=== PATIENT | female | born 1945 | race Caucasian/White ===

== ENCOUNTER → 2018-09-16 10:17 | Outpatient (CLI) | payer MEDICARE, SELFPAY ==
--- NOTE | 2018-09-16 | DI.RAD.S_ITS ---
PROCEDURE: XR CHEST 2V INDICATIONS: PNEUMONIA TECHNIQUE: 2 views of the chest were acquired. COMPARISON: None. FINDINGS: Surgical changes and devices: None. Lungs and pleura: Lungs are clear. No pleural effusions or pneumothorax. Mediastinum: Mediastinal contours are normal. Heart size is normal. Bones and chest wall: No suspicious bony abnormalities. Soft tissues appear unremarkable. IMPRESSION: No acute cardiopulmonary pathology. Dictated by: Ezequiel Pierre M.D. on 09/16/2018 at 11:59 Approved by: Ezequiel Pierre M.D. on 09/16/2018 at 12:01
== END ==
PROVIDERS: PCP Family Medicine; Visit Provider Family Medicine
DX: J18.9 Pneumonia, unspecified organism (principal); R05 Cough
CPT/HCPCS: 71046

== ENCOUNTER 2020-02-02 11:58 | Emergency (ER) | payer MEDICARE, SELFPAY ==
[2020-02-02 12:11] VITALS: BP 143/88; PULSE 85; RESP 16; TEMP 36.8; O2SAT 98; BMI 24.7
--- NOTE | 2020-02-02 12:19 | DI.RAD.S_ITS ---
PROCEDURE: XR ANKLE RT MIN 3V INDICATIONS: fall TECHNIQUE: 3 views of the ankle were acquired. COMPARISON: None. FINDINGS: Bones: Comminuted, mildly displaced distal fibular fracture extending to the articular surface. Minimally displaced posterior malleolar fracture. No other fractures or dislocations seen. Ankle mortise is normally aligned. No suspicious bony lesions. Soft tissues: No tibiotalar joint effusion. Achilles tendon appears normal. IMPRESSION: Bimalleolar fractures involving the distal fibula and posterior malleolus as described above. Dictated by: Dawson Martinez M.D. on 02/02/2020 at 12:43 Approved by: Dawson Martinez M.D. on 02/02/2020 at 12:44
--- NOTE | 2020-02-02 12:53 | ED_ITS ---
HPI - Extremity Injury (Lower) <COLE Santiago - Last Filed: 02/02/20 17:32> General Chief Complaint: Extremity Injury, Lower Stated Complaint: rolled right ankle Time Seen by Provider: 02/02/20 12:15 Source: patient Mode of arrival: Wheelchair History of Present Illness HPI Narrative: 74yo female presents to the for right ankle pain and swelling post fall. She states she was walking outside when she stepped on a rock and felt her ankle snap. She called to the house and called for her . She denies any previous injury to the ankle. Denies any symptoms prior to fall, states it is clearly mechanical fall as it was dark outside when she was walking to her car. She was unable to bear weight post injury. Denies any dizziness, hand pain, other injuries, chest pain, shortness of breath, abdominal pain, nausea, vomiting, diarrhea, or any other concerns. Is able to wiggle her toes but reports pain with toe movement in ankle movement. Related Data Previous Rx's Medication Instructions Recorded hydrocodone-acetaminophen [[place]] 1 tab PO Q4-6H PRN #14 tab 02/02/20 Review of Systems <COLE Santiago - Last Filed: 02/02/20 17:32> Review of Systems Narrative: REVIEW OF SYSTEMS: GENERAL: Denies fever. HENT: No head trauma. CARDIOVASCULAR: No chest pain or syncope. RESPIRATORY: No shortness of breath or cough. GASTROINTESTINAL: No nausea, vomiting, diarrhea, or constipation. MUSCULOSKELETAL: Complains of R anklr pain, see HPI. INTEGUMENTARY: No rash. NEURO: No numbness, tingling. Patient History <COLE Santiago - Last Filed: 02/02/20 17:32> Medical History No significant medical problems Social History Smoking Status: Never smoker Smoking Status: Never smoker Substance Use Type: does not use Exam <COLE Santiago - Last Filed: 02/02/20 17:32> Initial Vital Signs Initial Vital Signs: Vital Signs Temperature 98.2 F 02/02/20 12:11 Pulse Rate 85 02/02/20 12:11 Respiratory Rate 16 02/02/20 12:11 Blood Pressure 143/88 H 02/02/20 12:11 Pulse Oximetry 98 02/02/20 12:11 PHYSICAL EXAMINATION: GENERAL: Well groomed, alert, and cooperative. HENT: Normocephalic, atraumatic. EYES: Symmetrical, sclera white, no periorbital swelling. CARDIOVASCULAR: Regular rate. RESPIRATORY: Normal respiratory rate, trachea midline, airway patent. No stridor, nasal flaring or accessory muscle use. MUSCULOSKELETAL: Obvious deformity to ankle with right foot inversion, tenderness to palpation, swelling, and surrounding ecchymosis. No tenderness to palpation of knee or hip. EXTREMITIES: CMS intact. Pedal pulses 2+ and equal bilaterally, sensation intact distal and proximal to fracture. SKIN: Warm, dry, soft, appropriate color for ethnicity. No lesions, rashes, or wounds. NEURO: Alert and Oriented X 3. No sensory deficits. PSYCH: Appropriate affect and mood. <Alvaro Mathew DO - Last Filed: 02/02/20 17:40> Initial Vital Signs Initial Vital Signs: Vital Signs Temperature 98.2 F 02/02/20 12:11 Pulse Rate 85 02/02/20 12:11 Respiratory Rate 16 02/02/20 12:11 Blood Pressure 143/88 H 02/02/20 12:11 Pulse Oximetry 98 02/02/20 12:11 Procedures <COLE Santiago - Last Filed: 02/02/20 17:32> Orthopedic Splinting/Casting Injury #1: Side: right Lower Extremity Injury Location: lower leg Lower Extremity Immobilizer: posterior splint and stirrup splint Other Orthopedic Equipment: crutches Post splinting neuro exam: intact Post splinting vascular exam: intact Placed by: Nursing Course <COLE Santiago - Last Filed: 02/02/20 17:32> Course Course Narrative: Patient given pain medication prior to splint placement. Orders Ordered: ED Orders 02/02/20 12:19 XR ankle RT min 3V Stat Discontinued Medications Hydrocodone Bitart/Acetaminophen (Hydrocodone/Acet 5/325 Tablet) 1 tab PO NOW ONE Stop: 02/02/20 13:23 Last Admin: 02/02/20 13:26 Dose: 1 tab Documented by: GAURANG Recinos Consultation #1: Patient staffed with Dr. Lanker Vital Signs Vital signs: Vital Signs - 8 hr 02/02/20 12:11 Temperature 98.2 F Pulse Rate 85 Respiratory Rate 16 Blood Pressure 143/88 H Pulse Oximetry 98 <Alvaro Mathew DO - Last Filed: 02/02/20 17:40> Orders Ordered: ED Orders 02/02/20 12:19 XR ankle RT min 3V Stat Discontinued Medications Hydrocodone Bitart/Acetaminophen (Hydrocodone/Acet 5/325 Tablet) 1 tab PO NOW ONE Stop: 02/02/20 13:23 Last Admin: 02/02/20 13:26 Dose: 1 tab Documented by: GAURANG Vital Signs Vital signs: Vital Signs - 8 hr 02/02/20 12:11 Temperature 98.2 F Pulse Rate 85 Respiratory Rate 16 Blood Pressure 143/88 H Pulse Oximetry 98 MDM - Extremity Injury (Lower) <COLE Santiago - Last Filed: 02/02/20 17:32> Medical Records Attestation: I reviewed the patient's medical records. Lab Data Attestation: I reviewed the patient's lab results. Imaging Data Extremity x-ray #1: Radiologist's Impression: [address] [id number] ReportSigned Patient: Laura CruzMR#: [id number]: [id number]:[id number]/Sex: 74 / FDate of Service: 02/02/20Loc: EDAccession Number: [id number] Procedure: XR ankle RT min 3V Ordering Provider: Kylah Geiger PROCEDURE: XR ANKLE RT MIN 3V INDICATIONS: fall TECHNIQUE: 3 views of the ankle were acquired. COMPARISON: None. FINDINGS: Bones: Comminuted, mildly displaced distal fibular fracture extending to the articular surface. Minimally displaced posterior malleolar fracture. No other fractures or dislocations seen. Ankle mortise is normally aligned. No suspicious bony lesions. Soft tissues: No tibiotalar joint effusion. Achilles tendon appears normal. IMPRESSION: Bimalleolar fractures involving the distal fibula and posterior malleolus as described above. Dictated by: Dawson Martinez M.D. on 02/02/2020 at 12:43 Approved by: Dawson Martinez M.D. on 02/02/2020 at 12:44 MDM Narrative Medical decision making narrative: History and examination reveal a significant bimalleolar right ankle fracture. Less concern for other injuries due to benign examination and lack of other concerns or pain. Patient denies hitting her head. Patient describes fall as clearly mechanical without concerning symptoms prior to fall or after fall other than ankle pain. Splint was placed, CMS intact pre and post splint placement. I straightened the ankle while nursing placed a splint to improve alignment. Patient was counseled extensively about the importance of following up with Ortho as soon as possible as most likely surgery may be needed. Pain medication was prescribed. She was encouraged to not bear any weight on her leg at any point. Patient agreed to plan of care verbalized understanding. Discharge Plan Departure Patient Disposition: Home Clinical Impression: Bimalleolar ankle fracture Qualifiers: Encounter type: initial encounter Fracture type: closed Laterality: right Qualified Code(s): S82.841A - Displaced bimalleolar fracture of right lower leg, initial encounter for closed fracture Instructions: DI for Ankle Fracture Activity Restrictions/Additional Instructions: Thank you for entrusting me with your care today. As discussed, you have multiple fractures in your right ankle. We have placed a splint on your ankle, please leave this in place until you are evaluated by an orthopedic. If the splint causes a lot of pain, you may loosen the Angelito bandage. Do not place any weight on your right foot, use crutches to move around, elevate your foot as much as possible. You have been prescribed a narcotic medication, this medication can make you drowsy. Do not drive while using this medication or perform activities that require mental alertness. These medications can also make you constipated, please use [id number] docusate sodium as needed for constipation. Please call the orthopedic listed below today or tomorrow to schedule a follow- up appointment. Tell them you were seen in the emergency department and diagnosed with a bimalleolar ankle fracture. Return emergency department for any new or worsening symptoms. Prescriptions: New hydrocodone-acetaminophen [[place]] 5-325 mg tablet 1 tab PO Q4-6H PRN (Reason: pain) Qty: 14 RF: 0 Referrals: Darell Feldman MD [Physician] - (Bimalleolar fracture) Sharon Mcrae [Primary Care Provider] - <Alvaro Mathew DO - Last Filed: 02/02/20 17:40> Cosign ED Attending Cosignature Attestation: Dr Mathew Co-Sign Statement: I was available for consultation during this patient's emergency department visit. This chart is signed by myself for administrative purposes only. I did not have direct contact with this patient during this visit. They were seen independently by the APC.
[2020-02-02] MEDS: HYDROCODONE/ACET 5/325 TABLET 1 TAB PO (13:26)
== END 2020-02-02 14:48 | disposition home or self-care (01) ==
PROVIDERS: Emergency Provider Nurse Practitioner; PCP Family Medicine
DX: S82.841A Displaced bimalleolar fracture of right lower leg, initial encounter for closed fracture (principal); W19.XXXA Unspecified fall, initial encounter
CPT/HCPCS: 29515; 73610; 99283

== ENCOUNTER 2023-08-03 13:00 | Inpatient (IN) | payer MEDICARE, OTHER, SELFPAY ==
[2023-08-03] VITALS (20 sets, daily range): BP systolic 101–178; BP diastolic 58–91; PULSE 81–135; RESP 20–52; TEMP 36.8–38.4; O2SAT 92–96; BMI 26.2; BMI 25.7
--- NOTE | 2023-08-03 13:21 | DI.RAD.S_ITS ---
PROCEDURE: XR CHEST 1V INDICATIONS: suspected sepsis TECHNIQUE: One view of the chest was acquired. COMPARISON: [facility], CR, XR CHEST 2V, 09/16/2018, 10:53. FINDINGS: Surgical changes and devices: None. Lungs and pleura: Lungs are clear. No pleural effusions or pneumothorax. Mediastinum: Mediastinal contours appear normal. Heart size is normal. Bones and chest wall: No suspicious bony lesions. Overlying soft tissues appear unremarkable. IMPRESSION: No acute cardiopulmonary abnormality is seen. Dictated by: Devin Perry M.D. on 08/03/2023 at 13:46 Approved by: Devin Perry M.D. on 08/03/2023 at 13:47
[2023-08-03 13:30] LABS: Add Manual Diff / Slide Review NO; Basophils Absolute Auto 0 /uL (0-100); Basophils Percent Auto 0.5 % (0-2); Eosinophils Absolute Auto 0 /uL (0-450); Hematocrit 37.4 % (36-46); Hemoglobin 12.8 g/dL (12.0-16.0); Lymphocytes Absolute Auto 900 /uL (1100-4500); Lymphocytes Percent Auto 10.8 % (25-40); Mean Corpuscular HGB Conc 34.2 % (30-36); Mean Corpuscular Hemoglobin 31.9 PG (26-34); Mean Corpuscular Volume 93.1 fL (80-100); Monocytes Absolute Auto 600 /uL (0-900); Monocytes Percent Auto 7.2 % (3-14); Neutrophils Absolute Auto 6600 /uL (1500-7000); Neutrophils Percent Auto 81.5 % (50-75); Platelet Count 173 X10^3/uL (150-400); Red Blood Cell Count 4.01 X10^6/uL (4.0-5.2); Red Cell Distribution Width 13.7 % (11.6-14.8)
--- NOTE | 2023-08-03 13:37 | DI.CT.S_ITS ---
PROCEDURE: CT ANGIO HEAD AND NECK INDICATIONS: confusion TECHNIQUE: After the administration of intravenous contrast, 1 mm thick sections acquired from the aortic arch through the [place]. 3-dimensional otnrswq-ocwvxgyoe-kyonsxtemm (MIP) and/or volume rendering reformats were acquired of the central intracranial vasculature and neck separately. For radiation dose reduction, the following was used: automated exposure control, adjustment of mA and/or kV according to patient size. COMPARISON: None. FINDINGS: Image quality: Diagnostic. BRAIN: CSF spaces: Ventricles are normal in size and shape. Basal cisterns are patent. No extra-axial fluid collections. Brain: No significant abnormality of the brain can be seen. Skull and face: Calvarium and facial bones appear intact, without suspicious lesions. Orbits appear normal. Sinuses: Sinuses and mastoids are clear. HEAD CT ANGIOGRAPHY: Anterior circulation: Intracranial internal carotid arteries are normal in size and flow. The flow within the paired anterior cerebral arteries is normal and symmetric. The flow within the middle cerebral arteries is normal and symmetric. The anterior communicating artery is seen. No aneurysms are seen. Posterior circulation: Visualized portions of the vertebral arteries demonstrate normal caliber, and join to form a normal appearing basilar artery. Flow within the posterior cerebral arteries is normal and symmetric. No aneurysms are seen. NECK CT ANGIOGRAPHY: Carotid system: The great vessels demonstrate a conventional anatomy as they arise from the aortic arch. The origins of the common carotid arteries appear patent. The common carotid arteries demonstrate normal caliber and courses. The bifurcation regions are both widely patent. The internal carotid arteries demonstrate normal calibers and courses. Posterior circulation: The origins of the vertebral arteries both appear widely patent. The more superior extracranial portions of both vertebral arteries also demonstrate normal courses and calibers. They join to form a normal appearing basilar artery. Soft tissues: Visualized neck soft tissues demonstrate no suspicious abnormalities. Subcentimeter left thyroid nodule; size does not warrant follow-up per consensus guidelines. Bones: No suspicious bony lesions. Visualized cervical spine appears normally aligned. IMPRESSION: No significant intracranial arterial abnormality is seen. No significant abnormality is seen within the arteries of the neck. Any quantitative measurements of stenosis were performed using NASCET criteria. Dictated by: Devin Perry M.D. on 08/03/2023 at 14:32 Approved by: Devin Perry M.D. on 08/03/2023 at 14:34
--- NOTE | 2023-08-03 13:37 | DI.CT.S_ITS ---
PROCEDURE: CT HEAD/BRAIN WO CON INDICATIONS: fall confusion TECHNIQUE: Noncontrast 4.5 mm thick angled axial sections acquired from the foramen magnum to the vertex, with coronal and sagittal reformats. For radiation dose reduction, the following was used: automated exposure control, adjustment of mA and/or kV according to patient size. COMPARISON: None. FINDINGS: Image quality: Diagnostic. CSF spaces: Basal cisterns are patent. No extra-axial fluid collections. Ventricles are normal in size and shape. Brain: No midline shift. No intracranial masses or hemorrhage. Price-white matter interface is normal. Leukoaraiosis, commonly caused by small vessel ischemic disease. Skull and face: Calvarium and visualized facial bones are intact, without suspicious lesions. Sinuses: Visualized sinuses and mastoids are clear. IMPRESSION: No acute intracranial pathology. Dictated by: Devin Perry M.D. on 08/03/2023 at 14:24 Approved by: Devin Perry M.D. on 08/03/2023 at 14:25
[2023-08-03 13:38] LABS: INR 1.1 (0.9-1.3); Prothrombin Time 12.4 SECONDS (9.4-12.5)
--- NOTE | 2023-08-03 13:39 | ED_ITS ---
HPI - Neuro Symptoms/Deficit General Chief Complaint: Neuro Symptoms/Deficit Stated Complaint: fatigue, fever, confusion Time Seen by Provider: 08/03/23 13:06 Source: patient and family Mode of arrival: Ambulatory History of Present Illness HPI Narrative: Patient is a 70-year-old female with a history of chronic back pain recent back surgery in January presenting today with increased confusion. Family reports that she frequently does not feel well after her back surgery. She lives over on [place] with her 4 days ago she was not feeling well which is not uncommon had to leave and did not see her until the next night where he noticed that she was not feeling quite right but maybe not so severe. However last night when daughter arrived there was significant word trouble finding. Apparently when the was gone she fell out of bed and hit her head and required assistance getting up. No injury from the fall. She has not on antiplatelet or anticoagulation medication. Daughter reports that she does get UTIs and gets confused at times. She has noted a low-grade temperature of about 100 but no significant cough nausea vomiting. Patient is overall word searching able to follow commands not able to give history and is confused. She is found to be in new onset atrial flutter without prior history of atrial flutter LKW 2 days ago On Anticoagulants: No Related Data Previous Rx's Medication Instructions Recorded hydrocodone 5 mg-acetaminophen 325 1 tab PO Q4-6H PRN pain #14 tabs 02/01/20 mg tablet ([place]) Allergies Allergy/AdvReac Type Severity Reaction Status Date / Time No Known Drug Allergies Allergy Verified 08/03/23 13:17 Review of Systems Hematologic/Lymphatic On Anticoagulants: No Patient History Medical History No significant medical problems Social History Smoking Status: Never smoker Smoking Status: Never smoker alcohol intake frequency: a few times a week Substance Use Type: does not use Exam Initial Vital Signs Initial Vital Signs: Vital Signs Temperature 98.2 F 08/03/23 13:17 Pulse Rate 135 H 08/03/23 13:17 Respiratory Rate 20 08/03/23 13:17 Blood Pressure 154/91 H 08/03/23 13:17 Pulse Oximetry 95 08/03/23 13:17 Oxygen Delivery Method Room Air 08/03/23 13:17 GENERAL: Alert pleasant 70-year-old female and in no acute distress. HEENT: Head atraumatic,EOMI, pupils reactive, face symmetric, moist mucous membranes CARDIOVASCULAR: Tachycardic regular no murmurs RESPIRATORY: Breath sounds equal bilaterally, no wheezes rales or rhonchi. ABDOMEN: Soft, nontender. Normoactive bowel sounds all 4 quadrants. No guarding or rebound. EXTREMITIES: Normal range of motion, no clubbing or edema. Neurovascularly intact NEUROLOGICAL: Alert and oriented x 1 no facial droop no slurring of speech definite word-finding difficulty SKIN: Warm, dry, no laceration, no petechiae, no rashes or lesions. Course Orders Ordered: ED Orders 08/03/23 13:17 BNP [NT-proBNP (BNP-Adult 18+)] Stat Complete Blood Count AUTO DIFF Stat Comprehensive Metabolic Panel Stat Lactate (Lactic Acid) Stat Lipase Stat PTT Partial Thromboplastin Eladio Stat Procalcitonin Stat Prothrombin Time INR Stat Respiratory Panel (Film Array) Stat 08/03/23 13:21 XR chest 1V Stat EKG-12 Lead Stat RT Consult Eval and Treat NOW 08/03/23 13:37 CT angio head and neck Stat CT head/brain wo con Stat 08/03/23 13:48 EKG-12 Lead Stat 08/03/23 14:00 Blood Culture Stat Acetaminophen (Acetaminophen 325 Mg Tablet) 650 mg PO Q6H PRN PRN Reason: Fever/Mild Pain (1-3) Heparin Sodium (Porcine) (Heparin 5,000 Unit/Ml Vial) 5,000 unit SUBCUT BID SHAUN POTASSIUM CHLORIDE IN WATER (Potassium Cl 10 Meq/100 Ml Elly) 10 meq in 100 mls @ 100 mls/hr IV Q1H SHAUN Stop: 08/03/23 17:59 Last Infusion: 08/03/23 16:48 Dose: 0 mls/hr Documented By: Admin: 08/03/23 16:22 Dose: 100 mls/hr Documented By: Infusion: 08/03/23 16:22 Dose: Infused Documented By: Admin: 08/03/23 15:23 Dose: 100 mls/hr Documented By: Infusion: 08/03/23 15:05 Dose: Infused Documented By: Admin: 08/03/23 14:05 Dose: 100 mls/hr Documented By: DONNA Naloxone HCl (Naloxone 0.4 Mg/Ml Vial) 0.2 mg IV Q2MIN PRN PRN Reason: Opiate Reversal Ondansetron HCl (Ondansetron 4 Mg/2 Ml Inj) 4 mg IV NOW PRN PRN Reason: Nausea And Vomiting Ondansetron HCl (Ondansetron 4 Mg Odt) 4 mg SL NOW PRN PRN Reason: Nausea And Vomiting Discontinued Medications Aspirin (Aspirin 81 Mg Chew Tab) 324 mg PO NOW ONE Stop: 08/03/23 15:38 Last Admin: 08/03/23 15:57 Dose: 324 mg Documented By: DONNA Sodium Chloride (Normal Saline 0.9%) 1,000 mls @ 1,000 mls/hr IV BOLUS ONE Stop: 08/03/23 14:20 Last Infusion: 08/03/23 16:48 Dose: Infused Documented By: Admin: 08/03/23 14:05 Dose: 1,000 mls/hr Documented By: DONNA Sodium Chloride (Normal Saline 0.9%) 1,000 mls @ 1,000 mls/hr IV BOLUS ONE Stop: 08/03/23 14:23 Vital Signs Vital signs: Vital Signs - 8 hr 08/03/23 13:17 08/03/23 15:30 Temperature 98.2 F Pulse Rate 135 H 118 H Respiratory Rate 20 21 Blood Pressure 154/91 H 101/58 L Pulse Oximetry 95 95 Oxygen Delivery Method Room Air MDM - Neuro Symptoms/Deficit Lab Data 08/03/23 13:17 08/03/23 13:17 Labs: Lab Results 08/03/23 Range/Units 13:17 WBC 8.0 (4.5-11.0) X10^3/uL RBC 4.01 (4.0-5.2) X10^6/uL Hgb 12.8 (12.0-16.0) g/dL Hct 37.4 (36-46) % MCV 93.1 (80-100) fL MCH 31.9 (26-34) PG MCHC 34.2 (30-36) % RDW 13.7 (11.6-14.8) % Plt Count 173 (150-400) X10^3/uL Neut % (Auto) 81.5 H (50-75) % Lymph % (Auto) 10.8 L (25-40) % [place] % (Auto) 7.2 (3-14) % Eos % (Auto) 0.0 L (2-4) % Baso % (Auto) 0.5 (0-2) % Neut # (Auto) 6600 (6815-6315) /uL Lymph # (Auto) 900 L (1422-6776) /uL [place] # (Auto) 600 (0-900) /uL Eos # (Auto) 0 (0-450) /uL Baso # (Auto) 0 (0-100) /uL PT 12.4 (9.4-12.5) SECONDS INR 1.1 (0.9-1.3) APTT 35 (25.1-36.5) SECONDS Sodium 134 L (137-145) mmol/L Potassium 2.5 L* (3.4-5.1) mmol/L Chloride 95 L (98-107) mmol/L Carbon Dioxide 28 (22-32) mmol/L BUN 13 (7-17) mg/dL Creatinine 0.61 (0.52-1.04) mg/dL Estimated GFR > 60 (>60) mL/min BUN/Creatinine Ratio 21.3 (6-22) Glucose 149 H (80-110) mg/dL Lactate 1.8 (0.7-2.1) mmol/L Calcium 8.8 (8.4-10.2) mg/dL Magnesium 2.2 (1.6-2.3) mg/dL Total Bilirubin 1.3 (0.2-1.3) mg/dL AST 70 H (14-36) IU/L ALT 43 H (<35) IU/L Alkaline Phosphatase 95 (38-126) U/L NT-Pro-B Natriuret Pep 4640 H (<450) pg/mL Total Protein 7.4 (6.3-8.2) g/dL Albumin 4.3 (3.5-5.0) g/dL Globulin 3.1 (1.7-4.1) g/dL Albumin/Globulin Ratio 1.4 (1.0-2.8) Lipase 44 (23-300) U/L Procalcitonin 0.349 (<0.5) ng/mL Chlamy pneumoniae PCR Not detected (Not Detect) Adenovirus (PCR) Not detected (Not Detect) B.parapertussis DNA PCR Not detected (Not Detecte) Coronavirus OC43 (PCR) Not detected (Not Detect) Coronavirus HKU1 (PCR) Not detected (Not Detect) Coronavirus 229E (PCR) Not detected (Not Detect) SARS-CoV-2 (PCR) Not detected (Not Detecte) Coronavirus NL63 (PCR) Not detected (Not Detect) Human Metapneumovir PCR Not detected (Not Detect) Influenza Type A (PCR) Not detected (Not Detect) Influenza Type B (PCR) Not detected (Not Detect) M. pneumoniae (PCR) Not detected (Not Detect) Parainfluenza 1 (PCR) Not detected (Not Detect) Parainfluenza 2 (PCR) Not detected (Not Detect) Parainfluenza 3 (PCR) Not detected (Not Detect) Parainfluenza 4 (PCR) Not detected (Not Detect) RSV (PCR) Not detected (Not Detect) Entero/Rhino (PCR) Not detected (Not Detect) Imaging Data Chest x-ray: Radiologist's Impression: PROCEDURE: XR CHEST 1V INDICATIONS: suspected sepsis TECHNIQUE: One view of the chest was acquired. COMPARISON: [facility], XR CHEST 2V, 09/16/2018, 10:53. FINDINGS: Surgical changes and devices: None. Lungs and pleura: Lungs are clear. No pleural effusions or pneumothorax. Mediastinum: Mediastinal contours appear normal. Heart size is normal. Bones and chest wall: No suspicious bony lesions. Overlying soft tissues appear unremarkable. IMPRESSION: No acute cardiopulmonary abnormality is seen. Dictated by: Devin Perry M.D. on 08/03/2023 at 13:46 ECG Data Attestation: I personally reviewed and interpreted this ECG as follows: Prior ECG tracings: not available for review Interpretation: Atrial flutter rate 131 with PVC no ischemia no priors to MDM Narrative Medical decision making narrative: MDM CC: Confusion Complicating co-morbidities: Chronic back pain Data collected from: and daughter Medical records reviewed: None to review Differential considered: Sepsis CVA metabolic encephalopathy toxic ingestions Exam documented above, pertinent findings include: Patient is confused awake alert pleasant. Definitely has some aphasia but no significant slurring of speech or facial droop. She is definitely confused. Lab Test results independently reviewed as above. Pertinent findings: WBC 8.0, hemoglobin 12.8 hematocrit 37.4, platelets 173, sodium 134, potassium 2.5, chloride 95, carbon dioxide 28, BUN 13, creatinine 0.6, glucose 149, lactate 1.8, bilirubin 1.3, AST 70, ALT 43, BNP 4640, lipase 44 Independently reviewed EKG as above new onset atrial flutter with RVR Imaging studies independently reviewed: Head CT, CT angio, no intracranial hemorrhage no large vessel occlusion, chest x-ray no acute cardiopulmonary process Consultations: Dr. Myers updated on patient's symptoms and test results Treatments: K rider and IV fluids, asa Re-evaluations: [ ] Discussion: Patient presents today with confusion he has some obvious aphasia with new onset atrial flutter concern for CVA vs sepsis. She is also found to be hypokalemic which apparently she has had in the past. No leukocytosis or fever although blood cultures infectious workup is pending. Patient is found to have new onset atrial flutter with RVR. She seems to be relatively asymptomatic heart is in the 130s with new onset aphasia I suspect that she has had a CVA. Heart rate does fluctuate quite a bit and sometimes 120 to 130 she again has no symptoms. I suspect that with a BNP of 4640 she has probably been in atrial flutter for some time and been asymptomatic. NIH Stroke Scale/Score (NIHSS) from [email or web address] on 08/03/2023 All calculations should be rechecked by clinician prior to use RESULT SUMMARY: 2 points NIH Stroke Scale INPUTS: 1A: Level of consciousness ?> 0 = Alert; keenly responsive 1B: Ask month and age ?> 0 = Both questions right 1C: 'Blink eyes' & 'squeeze hands' ?> 0 = Performs both tasks 2: Horizontal extraocular movements ?> 0 = Normal 3: Visual tony ?> 0 = No visual loss 4: Facial palsy ?> 0 = Normal symmetry 5A: Left arm motor drift ?> 0 = No drift for 10 seconds 5B: Right arm motor drift ?> 0 = No drift for 10 seconds 6A: Left leg motor drift ?> 0 = No drift for 5 seconds 6B: Right leg motor drift ?> 0 = No drift for 5 seconds 7: Limb Ataxia ?> 0 = No ataxia 8: Sensation ?> 0 = Normal; no sensory loss 9: Language/aphasia ?> 2 = Severe aphasia: fragmentary expression, inference needed, cannot identify materials 10: Dysarthria ?> 0 = Normal 11: Extinction/inattention ?> 0 = No abnormality Discharge Plan Departure Admit Date/Time: 08/03/23 15:40 Admit Provider: Matthew Myers
[2023-08-03 13:41] LABS: PTT Partial Thromboplastin Tim 35 SECONDS (25.1-36.5)
[2023-08-03 13:44] LABS: Alanine Aminotransferase 43 IU/L (<35); Albumin 4.3 g/dL (3.5-5.0); Albumin Globulin Ratio 1.4 (1.0-2.8); Alkaline Phosphatase 95 U/L (38-126); Aspartate Aminotransferase 70 IU/L (14-36); BUN Creatinine Ratio 21.3 (6-22); Bilirubin Total 1.3 mg/dL (0.2-1.3); Blood Urea Nitrogen 13 mg/dL (7-17); Calcium 8.8 mg/dL (8.4-10.2); Carbon Dioxide 28 mmol/L (22-32); Chloride 95 mmol/L (98-107); Estimated Glomerular Filt Rate > 60 mL/min (>60); Globulin 3.1 g/dL (1.7-4.1); Glucose 149 mg/dL (80-110); HEMOLYSIS < 15 (0-50); Lactate (Lactic Acid) 1.8 mmol/L (0.7-2.1); Lipase 44 U/L (23-300); Sodium 134 mmol/L (137-145); Total Protein 7.4 g/dL (6.3-8.2)
[2023-08-03 13:49] LABS: Potassium 2.5 mmol/L (3.4-5.1)
[2023-08-03 13:52] LABS: NT-proBNP (BNP-Adult 18+) 4640 pg/mL (<450)
[2023-08-03 14:00] LABS: Procalcitonin 0.349 ng/mL (<0.5)
[2023-08-03] MEDS: POTASSIUM CHLORIDE IN WATER 10 MEQ/100 ML PIGGYBACK 100 MEQ IV ×4 (14:05→17:58)
[2023-08-03] MEDS: SODIUM CHLORIDE 0.9% 1,000 ML 1000 ML IV (14:05)
[2023-08-03 14:20] LABS: Adenovirus Not Detected (Not Detect); B. parapertussis Not Detected (Not Detecte); Bordetella pertussis Not Detected (Not Detect); Chlamydophila pneumoniae Not Detected (Not Detect); Coronavirus 229E Not Detected (Not Detect); Coronavirus HKU1 Not Detected (Not Detect); Coronavirus NL 63 Not Detected (Not Detect); Coronavirus OC43 Not Detected (Not Detect); Human Metapneumovirus Not Detected (Not Detect); Human Rhinovirus/Enterovirus Not Detected (Not Detect); Influenza A Not Detected (Not Detect); Influenza B Not Detected (Not Detect); Mycoplasma pneumoniae Not Detected (Not Detect); Parainfluenza Virus 1 Not Detected (Not Detect); Parainfluenza Virus 2 Not Detected (Not Detect); Parainfluenza Virus 3 Not Detected (Not Detect); Parainfluenza Virus 4 Not Detected (Not Detect); Respiratory Syncytial Virus Not Detected (Not Detect); SARS- CoV-2 Not Detected (Not Detecte)
[2023-08-03] MEDS: ASPIRIN 81 MG CHEW TAB 324 MG PO (15:57)
[2023-08-03 16:37] LABS: Magnesium 2.2 mg/dL (1.6-2.3)
--- NOTE | 2023-08-03 16:44 | P.HP_ITS ---
History of Present Illness History of Present Illness Date Patient Seen: 08/03/23 Chief complaint: fatigue, fever, confusion Narrative: From ED physician: Patient is a 70-year-old female with a history of chronic back pain recent back surgery in January presenting today with increased confusion. Family reports that she frequently does not feel well after her back surgery. She lives over on [address] [place] with her 4 days ago she was not feeling well which is not uncommon had to leave and did not see her until the next night where he noticed that she was not feeling quite right but maybe not so severe. However last night when daughter arrived there was significant word trouble finding. Apparently when the was gone she fell out of bed and hit her head and required assistance getting up. No injury from the fall. She has not on antiplatelet or anticoagulation medication. Daughter reports that she does get UTIs and gets confused at times. She has noted a low- grade temperature of about 100 but no significant cough nausea vomiting. Patient is overall word searching able to follow commands not able to give history and is confused. She is found to be in new onset atrial flutter without prior history of atrial flutter Additional: She has not been feeling well since about Saturday. She apparently fell out of bed was on the floor good part of the day and then helped back up and went back to bed later night. She had a 2nd episode of sliding to the floor and was helped back up. She was described as looking generally weak but not having clear unilateral symptoms. On Saturday she continued to be weak and ended up slumping to the floor again. She also began showing more confusion and some specific word finding issues. Because of persistence and worsening of confusion and word-finding problem she was brought to the hospital today. CT here was negative. She has not had a facial droop, visual changes, headache, weakness of 1 arm or leg or any other focal symptoms. Her potassium was very low in the emergency department this is being repleted. A magnesium was added and this was normal. She did have hypokalemia following back surgery, revision lumbar fusion of L4 and 5 last January. She does take potassium 10 mEq daily and hydrochlorothiazide 12.5 mg daily. She denies recent diarrhea. No history of renal potassium loss. She was in atrial fibrillation which is new. She has no palpitations or known history of atrial fibrillation. Shortly after arrival in the ICU she converted spontaneously to sinus rhythm. [facility] Medical History No significant medical problems Social History Smoking Status: Never smoker Meds Home Medications and Allergies Home Medications Medication Instructions Recorded Confirmed Type hydrocodone 5 mg-acetaminophen 325 1 tab PO Q4-6H PRN pain #14 tabs 02/02/20 Rx mg tablet ([place]) Allergies Allergy/AdvReac Type Severity Reaction Status Date / Time No Known Drug Allergies Allergy Verified 08/03/23 13:17 Review of Systems Review of Systems Narrative: All else reviewed and otherwise unremarkable except as noted in the history and physical. Exam Vital Signs (past 8 hours): - 08/03/23 13:17 08/03/23 15:30 08/03/23 15:58 Temperature 98.2 F Pulse Rate 135 H 118 H 96 H Respiratory Rate 20 21 27 H Blood Pressure 154/91 H 101/58 L Pulse Oximetry 95 95 96 Oxygen Delivery Method Room Air 08/03/23 15:58 08/03/23 15:59 08/03/23 16:00 Temperature Pulse Rate 95 H Respiratory Rate 26 H Blood Pressure 149/76 H 178/76 H Pulse Oximetry 95 Oxygen Delivery Method Oxygen Delivery Method Room Air Narrative Exam Narrative: NAD, alert and oriented, abnormal speech, calm. Normocephalic skull, EOMI, anicteric sclera, symmetric pupils. Oropharynx unremarkable, no droop. Neck supple, midline trachea, no adenopathy. Lungs clear, normal rate and effort. Heart regular, no murmur gallop or rub. Abdomen is soft, non distended and non tender. Extremities are free of edema. Skin is free of rash or lesions. Joints are not swollen or deformed. Judgment appears to be abnormal. She has intermittent word-finding difficulties. Overall she is able to communicate effectively and demonstrate which he is trying to say. She has no focal neurologic symptoms, cranial nerves are intact. Motor strength is 5/5 all extremities. Her gait was said to be normal while she traveled from [place] to [place] today. Objective ECG Impression: AF. Labs 08/03/23 13:17 08/03/23 13:17 Labs: Laboratory Results - last 24 hr 08/03/23 13:17 WBC 8.0 RBC 4.01 Hgb 12.8 Hct 37.4 MCV 93.1 MCH 31.9 MCHC 34.2 RDW 13.7 Plt Count 173 Neut % (Auto) 81.5 H Lymph % (Auto) 10.8 L [place] % (Auto) 7.2 Eos % (Auto) 0.0 L Baso % (Auto) 0.5 Neut # (Auto) 6600 Lymph # (Auto) 900 L [place] # (Auto) 600 Eos # (Auto) 0 Baso # (Auto) 0 PT 12.4 INR 1.1 APTT 35 Sodium 134 L Potassium 2.5 L* Chloride 95 L Carbon Dioxide 28 BUN 13 Creatinine 0.61 Estimated GFR > 60 BUN/Creatinine Ratio 21.3 Glucose 149 H Lactate 1.8 Calcium 8.8 Magnesium 2.2 Total Bilirubin 1.3 AST 70 H ALT 43 H Alkaline Phosphatase 95 NT-Pro-B Natriuret Pep 4640 H Total Protein 7.4 Albumin 4.3 Globulin 3.1 Albumin/Globulin Ratio 1.4 Lipase 44 Procalcitonin 0.349 Chlamy pneumoniae PCR Not detected Adenovirus (PCR) Not detected B.parapertussis DNA PCR Not detected Coronavirus OC43 (PCR) Not detected Coronavirus HKU1 (PCR) Not detected Coronavirus 229E (PCR) Not detected SARS-CoV-2 (PCR) Not detected Coronavirus NL63 (PCR) Not detected Human Metapneumovir PCR Not detected Influenza Type A (PCR) Not detected Influenza Type B (PCR) Not detected M. pneumoniae (PCR) Not detected Parainfluenza 1 (PCR) Not detected Parainfluenza 2 (PCR) Not detected Parainfluenza 3 (PCR) Not detected Parainfluenza 4 (PCR) Not detected RSV (PCR) Not detected Entero/Rhino (PCR) Not detected Assessment & Plan Assessment & Plan narrative: 1. Probable expressive aphasia, present on admission and active. 2. Hypokalemia, present on admission and active. 3. Acute metabolic encephalopathy, present on admission and active. 4. Chronic back pain, present on admission and active. 5. History of recurrent urinary tract infection, we will be ruled out. Plan: -aspirin and atorvastatin. MRI of the brain to rule out stroke. -correct potassium and check magnesium. Monitor potassium after. -monitor mental status. -PT, and OT assessments as well as speech therapy. There is a 2 midnight expectation for medical necessity. She is admitted inpatient status. She is full resuscitation. Her is her proxy decision maker. Time Spent With Patient Time with patient: 30 to 49 minutes with 50% spent counseling/coordinating care Quality MIPS - Admit I confirm the patient?s Advance Care Plan is present, Code status is documented, Surrogate decision maker is in patient?s record [If Yes, STOP here]: Yes MIPS - Meds 'Current medications' to include all prescriptions, [id number] products, herbals, cannabis/cannabidiol products, and vitamin/mineral/dietary (nutritional) supplements. I have utilized all available resources to obtain, update, or review the patient?s current medications. [If Yes, STOP here]: Yes
[2023-08-03 17:54] LABS: Troponin I 0.103 ng/mL (0.01-0.034)
--- NOTE | 2023-08-03 18:06 | DI.MRI.S_ITS ---
PROCEDURE: MR HEAD/BRAIN WO CON INDICATIONS: word finding issues R/O CVA TECHNIQUE: Noncontrast axial T1 spin echo, axial T2 fast spin echo, sagittal and axial FLAIR, coronal T2 fast spin echo, axial gradient echo, axial diffusion and ADC through the brain. COMPARISON: CT head 08/02/2023, CT angio head neck 08/03/2023. FINDINGS: Image quality: Diagnostic. CSF Spaces: Basal cisterns are patent. No extra-axial fluid collections. Ventricles are normal in size and shape. Brain: No intracranial masses or hemorrhage. Price/white matter interface is normal. Brainstem appears normal. Diffusion-weighted images demonstrate no acute infarct. No chronic ischemic insults. Normal intravascular flow voids are present. Skull and face: Calvarium has normal marrow signal. Orbits appear normal. Sinuses: Sinuses and mastoids are clear. IMPRESSION: No acute intracranial abnormality. Approved by: Alix Garcia M.D.,Ph.D. on 08/04/2023 at 9:16
[2023-08-03 18:55] LABS: Appearance Urine UA CLEAR; Bilirubin Urine UA NEGATIVE (NEGATIVE); Color Urine UA YELLOW; Glucose Urine UA NEGATIVE (Negative); Ketones Urine UA 2+ (NEGATIVE); Leukocyte Esterase Urine UA NEGATIVE (NEGATIVE); Nitrite Urine UA NEGATIVE (Negative); Occult Blood Urine UA 2+ (Negative); Protein Urine UA 2+ (Negative)
[2023-08-03 19:04] LABS: pH Urine UA 6.5 (4.5-8.0)
[2023-08-03 19:05] LABS: Bacteria Urine Occasional (0-1); Culture Indicated Urine Cult Not Indicated; RBC Urine 0-1/HPF (0-5/HPF); Squamous Epithelial Cell Urine None Seen (0-5/HPF); Urine Volume 10mL (spun); WBC Urine 0-1/HPF (0-5/HPF)
[2023-08-03 19:05] LABS: MRSA (Nasal) PCR NOT DETECTED (Not Detect)
--- NOTE | 2023-08-03 19:23 | PC.ADMIT ---
[email or web address] [email or web address] Admission Note: The patient,Laura Cruz,78 y/o, was given written information regarding hospital policies, unit procedures and contact persons. Patient's smoking status: Never smoker. Vital Signs - 8 hr 08/03/23 13:17 08/03/23 15:30 08/03/23 15:58 Temperature 98.2 F Pulse Rate 135 H 118 H 96 H Respiratory Rate 20 21 27 H Blood Pressure 154/91 H 101/58 L Pulse Oximetry 95 95 96 Oxygen Delivery Method Room Air 08/03/23 15:58 08/03/23 15:59 08/03/23 16:00 Temperature Pulse Rate 95 H Respiratory Rate 26 H Blood Pressure 149/76 H 178/76 H Pulse Oximetry 95 Oxygen Delivery Method 08/03/23 16:00 08/03/23 16:30 08/03/23 16:31 Temperature Pulse Rate 95 H 93 H Respiratory Rate 27 H 28 H Blood Pressure 135/66 Pulse Oximetry 94 94 Oxygen Delivery Method 08/03/23 16:31 08/03/23 17:00 Temperature Pulse Rate 92 H 87 Respiratory Rate 22 30 H Blood Pressure Pulse Oximetry 95 Oxygen Delivery Method Pt arrived via gurney, able to slide from gurney to bed with no distress, when connected tele it was noted that pt was in NSR, stat EKG ordered to confirm, confirmed NSR. VSS HR 84, sats 94% on RA. Pt still has some expressive aphasia, Dr Myers at bedside, new orders placed, pt oriented with family to room and call light system. Bed low and locked, call light within reach, no further needs at this time.
[2023-08-03] MEDS: HEPARIN 5,000 UNIT/ML VIAL 5000 UNIT SUBCUT (20:21)
[2023-08-03] MEDS: METOPROLOL IR 25 MG TABLET 12.5 MG PO (20:22)
[2023-08-03 21:58] LABS: HEMOLYSIS 19 (0-50); Magnesium 2.4 mg/dL (1.6-2.3); Potassium 3.3 mmol/L (3.4-5.1)
[2023-08-03] MEDS: POTASSIUM CHLORIDE 20 MEQ TAB 40 MEQ PO (23:06)
[2023-08-04] VITALS (52 sets, daily range): BP systolic 125–181; BP diastolic 61–84; PULSE 72–100; RESP 24–54; TEMP 37.3–38.9; O2SAT 85–96
--- NOTE | 2023-08-04 00:31 | PC.NURSE ---
Patient extremely restless, keeps getting out of bed without calling, denies any complaints when asked why she keep getting out of bed, did a bladder scan that showed 700 ml of urine, sat her in a commode but she will not void, patient got up from the commode and wanted to use the toilet, she then was able to void and have a BM, went to sleep afterwards.
[2023-08-04] MEDS: ACETAMINOPHEN 325 MG TABLET 650 MG PO ×2 (04:07→20:18)
[2023-08-04 04:59] LABS: Add Manual Diff / Slide Review NO; Basophils Absolute Auto 0 /uL (0-100); Basophils Percent Auto 0.2 % (0-2); Eosinophils Absolute Auto 0 /uL (0-450); Hematocrit 31.6 % (36-46); Lymphocytes Absolute Auto 700 /uL (1100-4500); Lymphocytes Percent Auto 10.4 % (25-40); Mean Corpuscular HGB Conc 34.8 % (30-36); Mean Corpuscular Hemoglobin 32.1 PG (26-34); Mean Corpuscular Volume 92.3 fL (80-100); Monocytes Absolute Auto 600 /uL (0-900); Monocytes Percent Auto 9.9 % (3-14); Neutrophils Absolute Auto 5000 /uL (1500-7000); Neutrophils Percent Auto 79.5 % (50-75); Platelet Count 154 X10^3/uL (150-400); Red Blood Cell Count 3.43 X10^6/uL (4.0-5.2); Red Cell Distribution Width 13.7 % (11.6-14.8); White Blood Cell Count 6.3 X10^3/uL (4.5-11.0)
[2023-08-04 05:15] LABS: BUN Creatinine Ratio 28.6 (6-22); Blood Urea Nitrogen 14 mg/dL (7-17); Calcium 8.5 mg/dL (8.4-10.2); Carbon Dioxide 27 mmol/L (22-32); Chloride 100 mmol/L (98-107); Estimated Glomerular Filt Rate > 60 mL/min (>60); Glucose 118 mg/dL (80-110); HEMOLYSIS 15 (0-50); Potassium 3.1 mmol/L (3.4-5.1); Sodium 133 mmol/L (137-145)
[2023-08-04 07:14] LABS: Troponin I 0.087 ng/mL (0.01-0.034)
[2023-08-04] MEDS: POTASSIUM CHLORIDE 20 MEQ TAB 40 MEQ PO ×2 (07:47→13:59)
--- NOTE | 2023-08-04 08:17 | P.PN_ITS ---
Subjective Subjective Interval history: She remains somewhat confused today. She is not able to name the hospital. She is also unable to name the year. She had a low-grade fever overnight. Her oxygenation is 90%. She has a mild tachycardia. Her troponins were mildly elevated overnight but she denies chest pain. MRI of the brain is negative for acute stroke. Exam Vital Signs (past 8 hours): - 08/04/23 01:00 08/04/23 01:00 08/04/23 02:00 Temperature Pulse Rate 80 Respiratory Rate 30 H Blood Pressure 160/73 H Pulse Oximetry Oxygen Delivery Method Room Air Oxygen Flow Rate 08/04/23 02:00 08/04/23 02:30 08/04/23 02:30 Temperature Pulse Rate 78 77 Respiratory Rate 35 H 45 H Blood Pressure 170/78 H Pulse Oximetry 92 Oxygen Delivery Method Oxygen Flow Rate 0 08/04/23 03:00 08/04/23 03:00 08/04/23 04:00 Temperature 102.0 F H Pulse Rate 76 Respiratory Rate 33 H Blood Pressure 143/63 H 149/72 H Pulse Oximetry 92 Oxygen Delivery Method Oxygen Flow Rate 0 08/04/23 04:00 08/04/23 04:07 08/04/23 05:00 Temperature 102 F H Pulse Rate 80 Respiratory Rate 45 H Blood Pressure 150/70 H Pulse Oximetry 89 L Oxygen Delivery Method Oxygen Flow Rate 08/04/23 05:00 08/04/23 06:00 08/04/23 06:00 Temperature Pulse Rate 84 81 Respiratory Rate 32 H 35 H Blood Pressure Pulse Oximetry 92 92 Oxygen Delivery Method Room Air Oxygen Flow Rate 08/04/23 06:00 08/04/23 06:22 08/04/23 07:00 Temperature 100.9 F H Pulse Rate Respiratory Rate Blood Pressure 157/74 H 125/61 Pulse Oximetry Oxygen Delivery Method Oxygen Flow Rate 08/04/23 07:00 08/04/23 08:00 08/04/23 08:00 Temperature Pulse Rate 77 72 Respiratory Rate 29 H 27 H Blood Pressure 141/68 H Pulse Oximetry 90 L 92 Oxygen Delivery Method Oxygen Flow Rate Oxygen Delivery Method Room Air Oxygen Flow Rate 0 Narrative Exam Narrative: NAD, alert and oriented. Fluent speech. She is oriented to person but not your place. Lungs are clear, normal rate and effort. Heart is regular, no murmur gallop or rub. Abdomen is soft, non distended. Extremities are free of edema. Mental status: Speech is fluent, she still is slow to process and occasionally can not answer relatively straightforward questions. Neurologically she has normal speech when she is able to talk. She did has normal motor strength of arms and legs. Her affect is slightly flat. She is slow to answer questions. Objective Imaging CT scan - head: Radiologist's impression: No significant intracranial arterial abnormality is seen. No significant abnormality is seen within the arteries of the neck. Labs 08/04/23 04:45 08/04/23 04:45 Labs: Laboratory Results - last 24 hr 08/03/23 08/03/23 08/03/23 13:17 13:50 13:50 WBC 8.0 RBC 4.01 Hgb 12.8 Hct 37.4 MCV 93.1 MCH 31.9 MCHC 34.2 RDW 13.7 Plt Count 173 Neut % (Auto) 81.5 H Lymph % (Auto) 10.8 L [place] % (Auto) 7.2 Eos % (Auto) 0.0 L Baso % (Auto) 0.5 Neut # (Auto) 6600 Lymph # (Auto) 900 L [place] # (Auto) 600 Eos # (Auto) 0 Baso # (Auto) 0 PT 12.4 INR 1.1 APTT 35 Sodium 134 L Potassium 2.5 L* Chloride 95 L Carbon Dioxide 28 BUN 13 Creatinine 0.61 Estimated GFR > 60 BUN/Creatinine Ratio 21.3 Glucose 149 H Lactate 1.8 Calcium 8.8 Magnesium 2.2 Total Bilirubin 1.3 AST 70 H ALT 43 H Alkaline Phosphatase 95 Troponin I NT-Pro-B Natriuret Pep 4640 H Total Protein 7.4 Albumin 4.3 Globulin 3.1 Albumin/Globulin Ratio 1.4 Lipase 44 Procalcitonin 0.349 Urine Color Yellow Urine Appearance Clear Urine pH 6.5 Ur Specific [place] 1.020 Urine Protein 2+ H Urine Glucose (UA) Negative Urine Ketones 2+ H Urine Occult Blood 2+ H Urine Nitrate Negative Urine Bilirubin Negative Urine Urobilinogen 1.0 Ur Leukocyte Esterase Negative Urine RBC Cancelled 0-1/hpf Urine WBC Cancelled Ur Squamous Epith Cells Ur Transition Epith Cell Ur Renal Epithelial Cell Calcium Oxalate Crystal Uric Acid Crystals Triple Phos Crystals Other Crystals Amorphous Sediment Urine Bacteria Hyaline Casts Granular Casts RBC Casts WBC Casts Other Casts Urine Mucus Urine Trichomonas Urine Yeast Urine Sperm Ur Culture Indicated? Micro UA Comment Vol Urine Centrifuged Nasal Screen MRSA (PCR) Chlamy pneumoniae PCR Not detected Adenovirus (PCR) Not detected B.parapertussis DNA PCR Not detected Coronavirus OC43 (PCR) Not detected Coronavirus HKU1 (PCR) Not detected Coronavirus 229E (PCR) Not detected SARS-CoV-2 (PCR) Not detected Coronavirus NL63 (PCR) Not detected Human Metapneumovir PCR Not detected Influenza Type A (PCR) Not detected Influenza Type B (PCR) Not detected M. pneumoniae (PCR) Not detected Parainfluenza 1 (PCR) Not detected Parainfluenza 2 (PCR) Not detected Parainfluenza 3 (PCR) Not detected Parainfluenza 4 (PCR) Not detected RSV (PCR) Not detected Entero/Rhino (PCR) Not detected 08/03/23 08/03/23 08/03/23 13:50 13:50 13:50 WBC RBC Hgb Hct MCV MCH MCHC RDW Plt Count Neut % (Auto) Lymph % (Auto) [place] % (Auto) Eos % (Auto) Baso % (Auto) Neut # (Auto) Lymph # (Auto) [place] # (Auto) Eos # (Auto) Baso # (Auto) PT INR APTT Sodium Potassium Chloride Carbon Dioxide BUN Creatinine Estimated GFR BUN/Creatinine Ratio Glucose Lactate Calcium Magnesium Total Bilirubin AST ALT Alkaline Phosphatase Troponin I NT-Pro-B Natriuret Pep Total Protein Albumin Globulin Albumin/Globulin Ratio Lipase Procalcitonin Urine Color Urine Appearance Urine pH Ur Specific [place] Urine Protein Urine Glucose (UA) Urine Ketones Urine Occult Blood Urine Nitrate Urine Bilirubin Urine Urobilinogen Ur Leukocyte Esterase Urine RBC Urine WBC 0-1/hpf Ur Squamous Epith Cells Cancelled None seen Ur Transition Epith Cell Cancelled Ur Renal Epithelial Cell Cancelled Calcium Oxalate Crystal Cancelled Uric Acid Crystals Cancelled Triple Phos Crystals Cancelled Other Crystals Cancelled Amorphous Sediment Cancelled Urine Bacteria Cancelled Occasional (0-1) Hyaline Casts Cancelled Granular Casts Cancelled RBC Casts Cancelled WBC Casts Cancelled Other Casts Cancelled Urine Mucus Cancelled Urine Trichomonas Cancelled Urine Yeast Cancelled Urine Sperm Cancelled Ur Culture Indicated? Cancelled Micro UA Comment Vol Urine Centrifuged Nasal Screen MRSA (PCR) Chlamy pneumoniae PCR Adenovirus (PCR) B.parapertussis DNA PCR Coronavirus OC43 (PCR) Coronavirus HKU1 (PCR) Coronavirus 229E (PCR) SARS-CoV-2 (PCR) Coronavirus NL63 (PCR) Human Metapneumovir PCR Influenza Type A (PCR) Influenza Type B (PCR) M. pneumoniae (PCR) Parainfluenza 1 (PCR) Parainfluenza 2 (PCR) Parainfluenza 3 (PCR) Parainfluenza 4 (PCR) RSV (PCR) Entero/Rhino (PCR) 08/03/23 08/03/23 08/03/23 13:50 13:50 17:20 WBC RBC Hgb Hct MCV MCH MCHC RDW Plt Count Neut % (Auto) Lymph % (Auto) [place] % (Auto) Eos % (Auto) Baso % (Auto) Neut # (Auto) Lymph # (Auto) [place] # (Auto) Eos # (Auto) Baso # (Auto) PT INR APTT Sodium Potassium Chloride Carbon Dioxide BUN Creatinine Estimated GFR BUN/Creatinine Ratio Glucose Lactate Calcium Magnesium Total Bilirubin AST ALT Alkaline Phosphatase Troponin I 0.103 H NT-Pro-B Natriuret Pep Total Protein Albumin Globulin Albumin/Globulin Ratio Lipase Procalcitonin Urine Color Urine Appearance Urine pH Ur Specific [place] Urine Protein Urine Glucose (UA) Urine Ketones Urine Occult Blood Urine Nitrate Urine Bilirubin Urine Urobilinogen Ur Leukocyte Esterase Urine RBC Urine WBC Ur Squamous Epith Cells Ur Transition Epith Cell Ur Renal Epithelial Cell Calcium Oxalate Crystal Uric Acid Crystals Triple Phos Crystals Other Crystals Amorphous Sediment Urine Bacteria Hyaline Casts Granular Casts RBC Casts WBC Casts Other Casts Urine Mucus Urine Trichomonas Urine Yeast Urine Sperm Ur Culture Indicated? Cult not indicated Micro UA Comment Cancelled Vol Urine Centrifuged Cancelled 10ml (spun) Nasal Screen MRSA (PCR) Chlamy pneumoniae PCR Adenovirus (PCR) B.parapertussis DNA PCR Coronavirus OC43 (PCR) Coronavirus HKU1 (PCR) Coronavirus 229E (PCR) SARS-CoV-2 (PCR) Coronavirus NL63 (PCR) Human Metapneumovir PCR Influenza Type A (PCR) Influenza Type B (PCR) M. pneumoniae (PCR) Parainfluenza 1 (PCR) Parainfluenza 2 (PCR) Parainfluenza 3 (PCR) Parainfluenza 4 (PCR) RSV (PCR) Entero/Rhino (PCR) 08/03/23 08/03/2324 17:24 21:35 04:45 WBC 6.3 RBC 3.43 L Hgb 11.0 L Hct 31.6 L MCV 92.3 MCH 32.1 MCHC 34.8 RDW 13.7 Plt Count 154 Neut % (Auto) 79.5 H Lymph % (Auto) 10.4 L [place] % (Auto) 9.9 Eos % (Auto) 0.0 L Baso % (Auto) 0.2 Neut # (Auto) 5000 Lymph # (Auto) 700 L [place] # (Auto) 600 Eos # (Auto) 0 Baso # (Auto) 0 PT INR APTT Sodium 133 L Potassium 3.3 L 3.1 L Chloride 100 Carbon Dioxide 27 BUN 14 Creatinine 0.49 L Estimated GFR > 60 BUN/Creatinine Ratio 28.6 H Glucose 118 H Lactate Calcium 8.5 Magnesium 2.4 H Total Bilirubin AST ALT Alkaline Phosphatase Troponin I 0.087 H NT-Pro-B Natriuret Pep Total Protein Albumin Globulin Albumin/Globulin Ratio Lipase Procalcitonin Urine Color Urine Appearance Urine pH Ur Specific [place] Urine Protein Urine Glucose (UA) Urine Ketones Urine Occult Blood Urine Nitrate Urine Bilirubin Urine Urobilinogen Ur Leukocyte Esterase Urine RBC Urine WBC Ur Squamous Epith Cells Ur Transition Epith Cell Ur Renal Epithelial Cell Calcium Oxalate Crystal Uric Acid Crystals Triple Phos Crystals Other Crystals Amorphous Sediment Urine Bacteria Hyaline Casts Granular Casts RBC Casts WBC Casts Other Casts Urine Mucus Urine Trichomonas Urine Yeast Urine Sperm Ur Culture Indicated? Micro UA Comment Vol Urine Centrifuged Nasal Screen MRSA (PCR) Not detected Chlamy pneumoniae PCR Adenovirus (PCR) B.parapertussis DNA PCR Coronavirus OC43 (PCR) Coronavirus HKU1 (PCR) Coronavirus 229E (PCR) SARS-CoV-2 (PCR) Coronavirus NL63 (PCR) Human Metapneumovir PCR Influenza Type A (PCR) Influenza Type B (PCR) M. pneumoniae (PCR) Parainfluenza 1 (PCR) Parainfluenza 2 (PCR) Parainfluenza 3 (PCR) Parainfluenza 4 (PCR) RSV (PCR) Entero/Rhino (PCR) [facility], [facility] Medical History No significant medical problems Social History household members: spouse Smoking Status: Never smoker alcohol intake: never Assessment & Plan Assessment & Plan narrative: 1. Acute encephalopathy possibly in context of chronic cognitive impairment, present on admission and active. 2. Hypokalemia, present on admission and improving. 3. Chronic back pain, present on admission and active. 4. History of recurrent urinary tract infection, we will be ruled out. Plan: -we will repeat chest x-ray and obtain a 2D echo to assess cardiac function. This is in response to her troponins and relative hypoxia. -respiratory PCR was negative, urine dip was negative. Blood cultures are pending and we will follow. -empiric acyclovir IV for possible encephalitis. She will be difficult to obtain lumbar puncture on here given her for a lumbar fusion surgeries. -physical therapy assessment for gait stability and SLUMS score. -out of bed, advance activity and monitor mental status. She requires ongoing monitoring of mental status and further evaluation of her cardiac and cognitive abnormalities. There is a 2 midnight expectation for medical necessity. She is admitted inpatient status.
[2023-08-04] MEDS: METOPROLOL IR 25 MG TABLET 12.5 MG PO ×2 (09:11→20:18)
[2023-08-04] MEDS: HEPARIN 5,000 UNIT/ML VIAL 5000 UNIT SUBCUT ×2 (09:11→20:18)
[2023-08-04] MEDS: AMLODIPINE 5 MG TABLET 10 MG PO (09:59)
--- NOTE | 2023-08-04 10:56 | DI.ECHO.S_ITS ---
[facility] : : [id number] : [place] : : [id number] : : Phone: [phone] Echocardiogram Report + + :Name: NIURKA LOERA Study Date: 08/04/2023 Height: 69 in : :[facility] ReadingLocation: Weight: 174 lb : : Gender: Female BSA: 1.9 m2 : :: 1945 Age: 78 yrs BP: 168/83 mmHg: :Reason For Study: FATIGUE, FEVER, CONFUSION : :Ordering Physician: SISSY, : :ROSS Asencio Performed By: Darron Jimenez : :Referring: ROSS SHEEHAN : + + Interpretation Summary Normal sinus rhythm. Normal LV size and wall thickness. Normal wall motion and LV systolic function. Ejection fraction is 60-65%. Stage I diastolic dysfunction. Aortic valve leaflets are mildly calcified but open well. There is a small independently mobile filamentous lesion on the ventricular aspect of the aortic valve best appreciated on view #13. This is most consistent with age- related degenerative changes but a small vegetation cannot be definitively excluded. There is mild associated aortic dilation measuring 3.9 cm in diameter. No prior study available for comparison. Procedure: A two-dimensional transthoracic echocardiogram with color flow and Doppler was performed. The study quality was technically adequate. There is no prior echocardiogram noted for this patient. The heart rate ranged between 83-100 bpm during the study. Left Ventricle: The left ventricle is normal in size and wall thickness. The ejection fraction is estimated to be 60-65%. Right Ventricle: The right ventricle is borderline dilated. The right ventricular systolic function is normal. Atria: The left atrium is borderline dilated. The right atrium is borderline dilated. The interatrial septum grossly appears intact with no obvious evidence for an atrial septal defect. Mitral Valve: The mitral valve is normal. There is no mitral valve stenosis. There is mild mitral regurgitation. Aortic Valve: The aortic valve is trileaflet. The aortic valve is mildly calcified. There is no aortic valve stenosis. No aortic regurgitation is present. Tricuspid Valve: The tricuspid valve is not well visualized, but is grossly normal. There is no tricuspid stenosis. There is mild tricuspid regurgitation. The right ventricular systolic pressure is estimated to be at least 34.7 mmHg based on an estimated right atrial pressure of 3 mm Hg. Pulmonic Valve: The pulmonic valve is not well visualized. There is no pulmonic valvular stenosis. There is no pulmonic valvular regurgitation. Great Vessels: The aortic root is normal size. The ascending aorta is mildly enlarged. The IVC is of normal diameter and collapses greater than 50% with a sniff. This suggests a low right atrial pressure of 3 mm Hg. Pericardium/ Pleura There is no pericardial effusion. There is no pleural effusion. MMode/2D Measurements & Calculations LVIDd: 5.1 cm LVOT diam: 2.1 cm LVIDs: 3.4 cm Ao root diam: 3.1 cm FS: 33.7 % asc Aorta Diam: 3.9 cm IVSd: 1.1 cm Ao Arch Diam (Prox Trans): 2.9 cm LVPWd: 0.86 cm LV dailey. diameter/BSA (cm/m^2): 2.6 LV sys. diameter/BSA (cm/m^2): 1.7 LA A2 area: 15.8 cm2 RA long axis: 4.4 cm LA A4 area: 18.1 cm2 RA area: 14.5 cm2 LA length (vol): 5.4 cm RA vol: 40.6 ml LA vol: 45.2 ml RA : 20.8 ml/m2 LA vol index: 23.2 ml/m2 IVC diam: 2.0 cm RVD1 (basal): 4.4 cm RVD2 (mid): 3.6 cm TAPSE: 2.6 cm Doppler Measurements & Calculations Ao V2 max: 172.4 cm/sec LVOT Max [place]: 97.1 cm/sec Ao V2 mean: 134.4 cm/sec LV V1 max P.8 mmHg Ao max P.9 mmHg LV V1 VTI: 20.2 cm Ao mean P.8 mmHg NIKOS(I,D): 2.0 cm2 Ao V2 VTI: 34.3 cm NIKOS(V,D): 1.9 cm2 sev ratio: 0.59 NIKOS indexed to BSA (cm^2/m^2): 1.0 MV E max [place]: 72.3 cm/sec TR max [place]: 281.1 cm/sec MV A max [place]: 95.3 cm/sec TR max P.7 mmHg MV E/A: 0.76 PA V2 max: 134.2 cm/sec Med Peak E' [place]: 7.6 cm/sec PA V2 mean: 91.1 cm/sec E/E' med: 9.5 PA mean P.7 mmHg Lat Peak E' [place]: 8.4 cm/sec PA pr(Accel): 49.9 mmHg E/E' lat: 8.6 E/e' average: 9.1 MV dec time: 0.17 sec SV(LVOT): 68.1 ml Electronically signed by: India Barreto M.D. on [place] Physician:08/04/2023 01:23 PM
--- NOTE | 2023-08-04 10:57 | DI.RAD.S_ITS ---
PROCEDURE: XR CHEST 1V INDICATIONS: dyspnea TECHNIQUE: One view of the chest was acquired. COMPARISON: [facility], CR, XR CHEST 1V, 08/03/2023, 13:21. FINDINGS: Surgical changes and devices: None. Lungs and pleura: Lungs are clear. No pleural effusions or pneumothorax. Mediastinum: Mediastinal contours appear normal. Heart size is normal. Bones and chest wall: No suspicious bony lesions. Overlying soft tissues appear unremarkable. IMPRESSION: No acute cardiopulmonary abnormality is seen. Approved by: Alix Garcia M.D.,Ph.D. on 08/04/2023 at 11:22
[2023-08-04] MEDS: HYDRALAZINE 10 MG TABLET PO (11:00)
[2023-08-04] MEDS: cloNIDine 0.1 MG TABLET PO ×2 (11:00→20:18)
[2023-08-04] MEDS: HYDROCODONE/ACET 5/325 TABLET 1 TAB PO (11:01)
[2023-08-04] MEDS: FOLIC ACID 1 MG TABLET PO (11:01)
[2023-08-04] MEDS: buPROPion XL 150 MG TAB PO (11:01)
[2023-08-04] MEDS: WATER IV ×2 (11:42→19:29)
[2023-08-04] MEDS: ACYCLOVIR IV ×2 (11:42→19:29)
[2023-08-04] MEDS: DEXTROSE 5% IV ×2 (11:42→19:29)
--- NOTE | 2023-08-04 12:42 | PT.IIE ---
Current Diagnoses Urinary tract infection, site not specified (08/03/23) Medical History (Last Reviewed 08/03/23 @ 16:45 by Matthew Myers MD) No significant medical problems Physical Therapy Inpatient Evaluation/Re-Eval M1 PT/OT-IP Prior Functional Status Start: 08/04/23 11:41 Freq: NEEDED Status: Active Protocol: Document 08/04/23 11:40 MB (Rec: 08/04/23 12:42 MB [id number]) Medical Review Prior Functional Status Medical History Reviewed Yes Communication Unclear baseline as pt has confusion, per nsg, pt is normal at baseline Mobility and Gait I per nsg and Activities of Daily Living and IADL's I per nsg and Social History Household Members spouse Living Arrangements House Number of Stairs To Enter/Railing? Unclear if steps or not Employment Status Retired Additional Social History Comment Per chart, pt lives on [place] and is occ at home alone at night M2 PT-IP Current Condition Start: 08/04/23 11:41 Freq: NEEDED Status: Active Protocol: Document 08/04/23 11:40 MB (Rec: 08/04/23 12:42 MB [id number]) Physical Therapy Current Condition Current Condition Evaluation Date 08/04/23 Treatment Diagnosis Confusion M3 PT-IP Subjective Start: 08/04/23 11:41 Freq: NEEDED Status: Active Protocol: Document 08/04/23 11:40 MB (Rec: 08/04/23 12:42 MB [id number]) Subjective Physical Therapy Visit Type Type Initial Evaluation Visit Start Time 11:40 Visit Stop Time 12:30 Number of BLOOD AND PLASMA LABORATORY ASSISTANT Visits 0 Physical Therapy Visit Comments Patient Comments Yes pt has trouble answering simple questions and tends to answer, yes, to many questions that are open-ended. Pt cannot state name today. Therapy Pain Assessment Pain When Pain Assessed At Rest Pain Present Pain Present Denied Pain M4 PT-IP Mobility and Gait Start: 08/04/23 11:41 Freq: NEEDED Status: Active Protocol: Document 08/04/23 11:40 MB (Rec: 08/04/23 12:42 MB [id number]) PT-Bed Mobility Assessment Supine to Sit Supine to Sit Standby Assistance,1 Person Assistance,Head of Bed Elevated,Bedrails Sit to Supine Sit to Supine Standby Assistance,1 Person Assistance,Head of Bed Elevated,Bedrails Scooting Scooting to Edge of Bed Standby Assistance Scooting Up and Down in Bed Standby Assistance PT-Transfer Assessment Comments Mobility Comments Pt states she does not want to get up and lies back down. She requires encouragement for bed mobility. PT-Balance Assessment Sitting Balance and Reactions Static Sitting Balance Ability Good Dynamic Sitting Balance Ability Good Comments Other Balance Tests/Deviations/Treatment Pt refuses standing and : getting up to chair M5 PT-IP Objective Assessments Start: 08/04/23 11:41 Freq: NEEDED Status: Active Protocol: Document 08/04/23 11:40 MB (Rec: 08/04/23 12:42 MB [id number]) Orientation Orientation/Cognition Level of Alertness Confusional State Orientation Birthday Safety Awareness Decreased Safety Awareness Memory Description Short Term Impaired,Manager Of Medical Impaired Comments Pt appears to have expressive and receptive deficits today and MD and nsg ask PT to try SLUMS and pt cannot participate with this today. Gross Range of Motion Upper Extremity ROM Assessment Within Functional Limits Lower Extremity ROM Assessment Within Functional Limits Strength Upper Extremity Strength Assessment Within Functional Limits Lower Extremity Strength Assessment Within Functional Limits M7 PT-IP Assessment and Plan Start: 08/04/23 11:41 Freq: NEEDED Status: Active Protocol: Document 08/04/23 11:40 MB (Rec: 08/04/23 12:42 MB [id number]) PT Summary Assessment and Plan Potential Rehabilitation Potential Fair Status of Condition at Evaluation Evolving Summary Impairments Cognition,Bed Mobility, Transfers,Gait,Activity Tolerance Progress Towards Goals Slow Progress - Other Assessment Summary Pt is a 78 y/o female adm with confusion. She follows one- step commands for UE and LE movement and to test DF MMT and she is functional, though she might have some degenerative changes in her shoulders. Vitals do not change with PT assessment. Pt appears to have expressive and receptive challenges today and she tends to state, yes, throughout evaluation. She refuses standing, getting OOB and to chair today. Will con't PT efforts for mobility. Recommend OT and ASSISTANT PROFESSOR OF PHYSICS consults as well as neurology consult. Goals Bed Mobility Goal Independent Transfer Goal Independent Gait Goal Independent Gait Distance 100 Other Goals If pt has steps, stair training with no more than CGA to allow safe home entry. Use of LRAD with transfers and gait goals. Days to Meet Goals 5 Frequency of Treatment Frequency Of Treatment Once a Day Treatment Plan Physical Therapy Treatment Plan Bed Mobility Training,Transfer Training,Gait Training, Therapeutic Exercise,Balance Retraining,Post Op Education, Discharge Planning,Hot or Cold Pack,Neuromuscular Re-ed Weight Bearing Status Weight Bearing Status Weight Bear as Tolerated Recommendations To Nursing Amount of Assist Needed 2 Person Assist Discharge Recommendations Other Discharge Recommendations Con't PT and 24 hour assistance at d/c, need to assess further for further recs as pt can tolerate; recommend neurology consult Transportation Needs at Discharge Wheelchair/Cabulance
[2023-08-04 13:26] LABS: HCO3 ABG 24 mmol/L (23-27); Oxygen Saturation ABG 88 % (95-100); PCO2 ABG 28.5 mmHg (35-45); TCO2 ABG 24 mmol/L (23-27); pH ABG 7.53 (7.35-7.45)
[2023-08-04 13:27] LABS: Allen Test for ABG Passed? Yes, Passed; Blood Gas Collection Site Right Radial; Fractionated Inspired Oxygen 20
[2023-08-04 13:28] LABS: PO2 ABG 48 mmHg (80-100)
--- NOTE | 2023-08-04 17:13 | PM.DS.1 ---
History of Present Illness History of Present Illness Chief complaint: fatigue, fever, confusion Narrative: From ED physician: Patient is a 70-year-old female with a history of chronic back pain recent back surgery in January presenting today with increased confusion. Family reports that she frequently does not feel well after her back surgery. She lives [place] on [address] with her 4 days ago she was not feeling well which is not uncommon had to leave and did not see her until the next night where he noticed that she was not feeling quite right but maybe not so severe. However last night when daughter arrived there was significant word trouble finding. Apparently when the was gone she fell out of bed and hit her head and required assistance getting up. No injury from the fall. She has not on antiplatelet or anticoagulation medication. Daughter reports that she does get UTIs and gets confused at times. She has noted a low-grade temperature of about 100 but no significant cough nausea vomiting. Patient is overall word searching able to follow commands not able to give history and is confused. She is found to be in new onset atrial flutter without prior history of atrial flutter Additional: She has not been feeling well since about Saturday. She apparently fell out of bed was on the floor good part of the day and then helped back up and went back to bed later night. She had a 2nd episode of sliding to the floor and was helped back up. She was described as looking generally weak but not having clear unilateral symptoms. On Saturday she continued to be weak and ended up slumping to the floor again. She also began showing more confusion and some specific word finding issues. Because of persistence and worsening of confusion and word-finding problem she was brought to the hospital today. CT here was negative. She has not had a facial droop, visual changes, headache, weakness of 1 arm or leg or any other focal symptoms. Her potassium was very low in the emergency department this is being repleted. A magnesium was added and this was normal. She did have hypokalemia following back surgery, revision lumbar fusion of L4 and 5 last January. She does take potassium 10 mEq daily and hydrochlorothiazide 12.5 mg daily. She denies recent diarrhea. No history of renal potassium loss. She was in atrial fibrillation which is new. She has no palpitations or known history of atrial fibrillation. Shortly after arrival in the ICU she converted spontaneously to sinus rhythm. Discharge Providers Provider Date of admission: 08/03/23 15:40 Discharge Date: 08/04/23 Primary care physician: Sharon Mcrae Consults: 08/04/23 11:23 Consult to Physical Therapy Evaluate & Treat Comment: Bennett paulson Physician Instructions: Evaluate and Treat Discharge provider: Matthew Myers MD Summary Hospital Course Discharge Diagnosis: 1. Acute encephalopathy possibly in context of chronic cognitive impairment, present on admission and active. Concern for possible HSV encephalitis or atypical seizure activity. 2. Hypokalemia, present on admission and improving. 3. Chronic back pain, present on admission and active. 4. History of recurrent urinary tract infection, we will be ruled out. 5. Possible aortic valve vegetation on echo, present on admission and active. Concern for possible subacute bacterial endocarditis. Hospital Course: This patient presented with 3-4 days' history of weakness as well as 3 falls to the floor. She also developed confusion which progressed over a day and a half and speaking difficulties. Upon her presentation in the ER she was felt to have some features of aphasia and a CT and CTA were obtained were unremarkable. She also had atrial fibrillation which is new. She was admitted to the floor where she was found to have features of aphasia and some confusion. She would word-finding difficulties and could not state the year or the place at different points in time. She had no witnessed tonic-clonic activity. Her neurologic exam was otherwise unremarkable other than mental status and speech. MRI was obtained in the morning of August 03 was negative for stroke. She had progressive worsening of her mental status with more confusion and more speech difficulty. She also had some difficulty following commands on August 03. She had a low-grade fever at several points. Blood cultures were obtained in the day of admission which were pending. Her urine dip was negative and a respiratory PCR was negative. An echo was obtained due to a mild elevation of troponin and she was found to have a possible aortic valve vegetation. An echo at [facility] 2 months ago had a normal aortic valve. She was started on acyclovir for concern for HSV encephalitis. Lumbar puncture was not feasible as she has a history of multiple lumbar fusions with the most recent revision in January of 2023. Antibiotics were not given. She was discussed with [facility] and a transfer was requested for ongoing evaluation and management likely including EEG, thoracic lumbar puncture, and possible transesophageal echo as well as following blood cultures. The patient was started on acyclovir and this was continued as of August 03. She began to have some difficulty urinating and following commands in the afternoon of August 03 and a Villagran catheter was placed. Status at Discharge Cognitive/behavioral status at discharge: confused Functional status at discharge: bed bound Overall status at discharge: patient is not back to baseline Time Spent with Patient Time spent: Greater than 30 minutes Exam Vital Signs (past 8 hours): - 08/04/23 09:30 08/04/23 10:00 08/04/23 10:00 Pulse Rate 78 75 Respiratory Rate 24 33 H Blood Pressure 164/77 H Pulse Oximetry 94 92 Oxygen Delivery Method 08/04/23 10:00 08/04/23 10:30 08/04/23 11:00 Pulse Rate 78 84 Respiratory Rate 28 H Blood Pressure 164/77 H Pulse Oximetry 89 L Oxygen Delivery Method Room Air 08/04/23 11:00 08/04/23 11:00 08/04/23 12:00 Pulse Rate 84 Respiratory Rate 38 H Blood Pressure 168/83 H 169/74 H Pulse Oximetry 93 Oxygen Delivery Method 08/04/23 12:00 08/04/23 12:30 08/04/23 13:00 Pulse Rate 82 89 81 Respiratory Rate 34 H 29 H 30 H Blood Pressure Pulse Oximetry 90 L 93 91 Oxygen Delivery Method 08/04/23 13:00 08/04/23 13:08 08/04/23 13:08 Pulse Rate 77 Respiratory Rate 33 H Blood Pressure 170/77 H 181/84 H Pulse Oximetry 89 L Oxygen Delivery Method 08/04/23 13:30 08/04/23 14:00 08/04/23 14:00 Pulse Rate 77 80 Respiratory Rate 28 H 32 H Blood Pressure Pulse Oximetry 89 L 89 L Oxygen Delivery Method Room Air 08/04/23 14:01 08/04/23 14:01 08/04/23 14:30 Pulse Rate 79 84 Respiratory Rate 36 H 32 H Blood Pressure 147/70 H Pulse Oximetry 88 L 91 Oxygen Delivery Method 08/04/23 15:00 08/04/23 15:00 08/04/23 15:15 Pulse Rate 85 86 Respiratory Rate 34 H 35 H Blood Pressure 148/72 H Pulse Oximetry 88 L 89 L Oxygen Delivery Method 08/04/23 15:20 08/04/23 15:30 08/04/23 15:40 Pulse Rate 88 100 H 84 Respiratory Rate 35 H 39 H 34 H Blood Pressure Pulse Oximetry 91 90 L 90 L Oxygen Delivery Method 08/04/23 15:50 08/04/23 15:59 08/04/23 15:59 Pulse Rate 97 H 88 Respiratory Rate 40 H 37 H Blood Pressure 145/67 H Pulse Oximetry 92 89 L Oxygen Delivery Method 08/04/23 16:00 08/04/23 16:00 08/04/23 16:10 Pulse Rate 88 97 H Respiratory Rate 36 H 37 H Blood Pressure 145/68 H Pulse Oximetry 88 L 91 Oxygen Delivery Method 08/04/23 16:20 08/04/23 16:30 08/04/23 16:33 Pulse Rate 96 H 92 H 86 Respiratory Rate 45 H 39 H Blood Pressure Pulse Oximetry 91 91 88 L Oxygen Delivery Method 08/04/23 16:33 08/04/23 16:45 08/04/23 17:00 Pulse Rate 85 Respiratory Rate 39 H Blood Pressure 142/76 H 148/71 H Pulse Oximetry 87 L Oxygen Delivery Method 08/04/23 17:00 Pulse Rate 89 Respiratory Rate 32 H Blood Pressure Pulse Oximetry 88 L Oxygen Delivery Method Oxygen Delivery Method Room Air Oxygen Flow Rate 0 Narrative Exam Narrative: NAD, alert and oriented. Fluent speech. Lungs are clear, normal rate and effort. Heart is regular, no murmur gallop or rub. Abdomen is soft, non distended. Extremities are free of edema. She is some difficulty with word finding and completing sentences. She has not able to state the year or place that she was in. She does have intermittent difficulty following commands. She was able to wiggle her toes this afternoon when I asked her to. She was not able to participate with physical therapy and get out of bed today. Objective ECG Impression: AF initially, NSR on repeat Imaging Chest x-ray: Radiologist's impression: IMPRESSION: No acute cardiopulmonary abnormality is seen. Approved by: Alix Garcia M.D.,Ph.D. on 08/04/2023 at 11:22 CT scan - head: Radiologist's impression: HEAD CT ANGIOGRAPHY: Anterior circulation: Intracranial internal carotid arteries are normal in size and flow. The flow within the paired anterior cerebral arteries is normal and symmetric. The flow within the middle cerebral arteries is normal and symmetric. The anterior communicating artery is seen. No aneurysms are seen. Posterior circulation: Visualized portions of the vertebral arteries demonstrate normal caliber, and join to form a normal appearing basilar artery. Flow within the posterior cerebral arteries is normal and symmetric. No aneurysms are seen. NECK CT ANGIOGRAPHY: Carotid system: The great vessels demonstrate a conventional anatomy as they arise from the aortic arch. The origins of the common carotid arteries appear patent. The common carotid arteries demonstrate normal caliber and courses. The bifurcation regions are both widely patent. The internal carotid arteries demonstrate normal calibers and courses. Posterior circulation: The origins of the vertebral arteries both appear widely patent. The more superior extracranial portions of both vertebral arteries also demonstrate normal courses and calibers. They join to form a normal appearing basilar artery. Soft tissues: Visualized neck soft tissues demonstrate no suspicious abnormalities. Subcentimeter left thyroid nodule; size does not warrant follow-up per consensus guidelines. Bones: No suspicious bony lesions. Visualized cervical spine appears normally aligned. IMPRESSION: No significant intracranial arterial abnormality is seen. No significant abnormality is seen within the arteries of the neck. CT head: IMPRESSION: No acute intracranial pathology. Dictated by: Devin Perry M.D. on 08/03/2023 at 14:24 Echo: Radiologist's impression: Interpretation Summary Normal sinus rhythm. Normal LV size and wall thickness. Normal wall motion and LV systolic function. Ejection fraction is 60-65%. Stage I diastolic dysfunction. Aortic valve leaflets are mildly calcified but open well. There is a small independently mobile filamentous lesion on the ventricular aspect of the aortic valve best appreciated on view #13. This is most consistent with age- related degenerative changes but a small vegetation cannot be definitively excluded. There is mild associated aortic dilation measuring 3.9 cm in diameter. No prior study available for comparison. Labs 08/04/23 04:45 08/04/23 04:45 Labs: Laboratory Results - last 24 hr 08/03/23 08/03/23 08/03/23 13:50 13:50 13:50 WBC RBC Hgb Hct MCV MCH MCHC RDW Plt Count Neut % (Auto) Lymph % (Auto) [place] % (Auto) Eos % (Auto) Baso % (Auto) Neut # (Auto) Lymph # (Auto) [place] # (Auto) Eos # (Auto) Baso # (Auto) ABG Sample Site ABG pH ABG pCO2 ABG pO2 ABG HCO3 ABG Total CO2 ABG O2 Saturation ABG Base Excess FiO2 Sodium Potassium Chloride Carbon Dioxide BUN Creatinine Estimated GFR BUN/Creatinine Ratio Glucose Calcium Magnesium Troponin I Urine Color Yellow Urine Appearance Clear Urine pH 6.5 Ur Specific [place] 1.020 Urine Protein 2+ H Urine Glucose (UA) Negative Urine Ketones 2+ H Urine Occult Blood 2+ H Urine Nitrate Negative Urine Bilirubin Negative Urine Urobilinogen 1.0 Ur Leukocyte Esterase Negative Urine RBC Cancelled 0-1/hpf Urine WBC Cancelled 0-1/hpf Ur Squamous Epith Cells Cancelled Ur Transition Epith Cell Ur Renal Epithelial Cell Calcium Oxalate Crystal Uric Acid Crystals Triple Phos Crystals Other Crystals Amorphous Sediment Urine Bacteria Hyaline Casts Granular Casts RBC Casts WBC Casts Other Casts Urine Mucus Urine Trichomonas Urine Yeast Urine Sperm Ur Culture Indicated? Micro UA Comment Vol Urine Centrifuged Nasal Screen MRSA (PCR) 08/03/23 08/03/23 08/03/23 13:50 13:50 13:50 WBC RBC Hgb Hct MCV MCH MCHC RDW Plt Count Neut % (Auto) Lymph % (Auto) [place] % (Auto) Eos % (Auto) Baso % (Auto) Neut # (Auto) Lymph # (Auto) [place] # (Auto) Eos # (Auto) Baso # (Auto) ABG Sample Site ABG pH ABG pCO2 ABG pO2 ABG HCO3 ABG Total CO2 ABG O2 Saturation ABG Base Excess FiO2 Sodium Potassium Chloride Carbon Dioxide BUN Creatinine Estimated GFR BUN/Creatinine Ratio Glucose Calcium Magnesium Troponin I Urine Color Urine Appearance Urine pH Ur Specific [place] Urine Protein Urine Glucose (UA) Urine Ketones Urine Occult Blood Urine Nitrate Urine Bilirubin Urine Urobilinogen Ur Leukocyte Esterase Urine RBC Urine WBC Ur Squamous Epith Cells None seen Ur Transition Epith Cell Cancelled Ur Renal Epithelial Cell Cancelled Calcium Oxalate Crystal Cancelled Uric Acid Crystals Cancelled Triple Phos Crystals Cancelled Other Crystals Cancelled Amorphous Sediment Cancelled Urine Bacteria Cancelled Occasional (0-1) Hyaline Casts Cancelled Granular Casts Cancelled RBC Casts Cancelled WBC Casts Cancelled Other Casts Cancelled Urine Mucus Cancelled Urine Trichomonas Cancelled Urine Yeast Cancelled Urine Sperm Cancelled Ur Culture Indicated? Cancelled Cult not indicated Micro UA Comment Cancelled Vol Urine Centrifuged Cancelled Nasal Screen MRSA (PCR) 08/03/23 08/03/23 08/03/23 13:50 17:20 17:24 WBC RBC Hgb Hct MCV MCH MCHC RDW Plt Count Neut % (Auto) Lymph % (Auto) [place] % (Auto) Eos % (Auto) Baso % (Auto) Neut # (Auto) Lymph # (Auto) [place] # (Auto) Eos # (Auto) Baso # (Auto) ABG Sample Site ABG pH ABG pCO2 ABG pO2 ABG HCO3 ABG Total CO2 ABG O2 Saturation ABG Base Excess FiO2 Sodium Potassium Chloride Carbon Dioxide BUN Creatinine Estimated GFR BUN/Creatinine Ratio Glucose Calcium Magnesium Troponin I 0.103 H Urine Color Urine Appearance Urine pH Ur Specific [place] Urine Protein Urine Glucose (UA) Urine Ketones Urine Occult Blood Urine Nitrate Urine Bilirubin Urine Urobilinogen Ur Leukocyte Esterase Urine RBC Urine WBC Ur Squamous Epith Cells Ur Transition Epith Cell Ur Renal Epithelial Cell Calcium Oxalate Crystal Uric Acid Crystals Triple Phos Crystals Other Crystals Amorphous Sediment Urine Bacteria Hyaline Casts Granular Casts RBC Casts WBC Casts Other Casts Urine Mucus Urine Trichomonas Urine Yeast Urine Sperm Ur Culture Indicated? Micro UA Comment Vol Urine Centrifuged 10ml (spun) Nasal Screen MRSA (PCR) Not detected 08/03/23 08/04/23 08/04/23 21:35 04:45 13:12 WBC 6.3 RBC 3.43 L Hgb 11.0 L Hct 31.6 L MCV 92.3 MCH 32.1 MCHC 34.8 RDW 13.7 Plt Count 154 Neut % (Auto) 79.5 H Lymph % (Auto) 10.4 L [place] % (Auto) 9.9 Eos % (Auto) 0.0 L Baso % (Auto) 0.2 Neut # (Auto) 5000 Lymph # (Auto) 700 L [place] # (Auto) 600 Eos # (Auto) 0 Baso # (Auto) 0 ABG Sample Site Right radial ABG pH 7.53 H ABG pCO2 28.5 L ABG pO2 48 L* ABG HCO3 24 ABG Total CO2 24 ABG O2 Saturation 88 L ABG Base Excess 1.0 FiO2 20 Sodium 133 L Potassium 3.3 L 3.1 L Chloride 100 Carbon Dioxide 27 BUN 14 Creatinine 0.49 L Estimated GFR > 60 BUN/Creatinine Ratio 28.6 H Glucose 118 H Calcium 8.5 Magnesium 2.4 H Troponin I 0.087 H Urine Color Urine Appearance Urine pH Ur Specific [place] Urine Protein Urine Glucose (UA) Urine Ketones Urine Occult Blood Urine Nitrate Urine Bilirubin Urine Urobilinogen Ur Leukocyte Esterase Urine RBC Urine WBC Ur Squamous Epith Cells Ur Transition Epith Cell Ur Renal Epithelial Cell Calcium Oxalate Crystal Uric Acid Crystals Triple Phos Crystals Other Crystals Amorphous Sediment Urine Bacteria Hyaline Casts Granular Casts RBC Casts WBC Casts Other Casts Urine Mucus Urine Trichomonas Urine Yeast Urine Sperm Ur Culture Indicated? Micro UA Comment Vol Urine Centrifuged Nasal Screen MRSA (PCR) [facility] Medical History No significant medical problems Social History household members: spouse Smoking Status: Never smoker alcohol intake: never Discharge Assessment & Plan Assessment and Plan Assessment: 1. Acute encephalopathy possibly in context of chronic cognitive impairment, present on admission and active. Concern for possible HSV encephalitis or atypical seizure activity. 2. Hypokalemia, present on admission and improving. 3. Chronic back pain, present on admission and active. 4. History of recurrent urinary tract infection, we will be ruled out. 5. Possible aortic valve vegetation on echo, present on admission and active. Concern for possible subacute bacterial endocarditis. Discharge Plan Discharge Plan Patient Disposition: [facility] Other facility: [facility] Under care of provider: Dr. Sandoval (neurology) Provider Discharge Comment: Stable for transfer to [facility] for ongoing evaluation of neurologic symptoms. Discharge orders & Medications Prescriptions: No Action hydrocodone-acetaminophen [[place]] 5-325 mg tablet 1 tab PO Q4-6H PRN (Reason: pain) Qty: 14 0RF clonidine HCl 0.1 mg tablet 0.1 mg PO BID amlodipine 5 mg tablet 10 mg PO DAILY bupropion HCl 150 mg tablet extended release 24 hr 150 mg PO DAILY gabapentin 300 mg capsule 900 mg PO TID pregabalin 100 mg capsule 100 - 200 mg PO DAILY triamcinolone acetonide 0.1 % Cream 1 applic TOPICAL PRN PRN (Reason: Rash) clobetasol 0.05 % Ointment 1 applic TOPICAL DAILY methylprednisolone 4 mg tablets,dose pack 4 mg PO DIRECTED fluoride (sodium) [PreviDent 5000 Dry Mouth] 1.1 % paste 1 applic dental DAILY hydralazine 10 mg tablet 10 mg PO BID PRN (Reason: blood pressure) famotidine 20 mg tablet 20 mg PO DAILY folic acid 1 mg tablet 1 mg PO DAILY epinephrine 0.3 mg/0.3 mL Auto-Injector 0.3 ml SUBCUT PRN PRN (Reason: Allergic Reaction) losartan 100 mg tablet 100 mg PO DAILY fluticasone propionate [Allergy Relief (fluticasone)] 50 mcg/actuation [place],Suspension 1 spray INTRANASAL BID naloxone 1 mg/mL Syringe 2 mg intranasal PRN PRN (Reason: overdose) cyclobenzaprine 5 mg tablet 5 mg PO ONCE PM PRN (Reason: muscle spasm) potassium chloride 10 mEq tablet,ER particles/crystals 10 meq PO DAILY hydrochlorothiazide 12.5 mg tablet 12.5 mg PO DAILY Medication counseling provided by Pharmacist: No Follow up/Referrals: Sharon Mcrae MD [Primary Care Provider] - Discharge Health Status Multidrug resistant organism: No MDRO Diet/Activity/Treatments Diet: Diet as Tolerated Discharge Data Primary Care Provider: Sharon Mcrae Quality MIPS - DC The patient has a history of heart transplant or Left Ventricular Assist Device (LVAD). If yes, STOP here.: No The patient has current or prior documentation of left ventricular ejection fraction (LVEF) less than or equal to 40%, or moderate or severely depressed left ventricular systolic function.: No
--- NOTE | 2023-08-04 17:17 | CM.DPNOTE ---
DCP Note MANAGER LABOR DELIVERY reviewed EMR. Pt here following AMS/confusion. Per RN report, hopeful for neuro involvement. MRI came back negative for stroke. RN reports pt only oriented to name occasionally. Per RN, pt indep at baseline. Pt unable to work with PT today due to confusion, see PT note for more. Pt has had spouse at bedside throughout the day. Unable to meet with spouse/pt for comprehensive DCP assessment today due to triaging needs. CM team will follow medical POC closely for DCP needs that arise. ZANDER Joel
--- NOTE | 2023-08-04 17:38 | PC.NURSE ---
Pt remained confused, with worsening expressive and receptive aphasia, at most only able to give , but most often unable to identify self, place, year, , president, etc. MRI of head negative, ECHO shows possible aortic valve vegetation, has had a previous normal ECHO. Vitals have been stable, slightly hypertensive at times, temp 100.9 see vitals for trend. Potassium level 3.1, receiving oral replacements. Telemetry shows NSR, no episodes of 08/02 A-Fib or A-Flutter. Pt unable to follow commands, acute urinary retention (as pt was unable to identify the need to urinate or how to get to the bathroom) was treated by placing a diaz catheter. ABG was obtained to r/o possible CO2 retention, was negative. Pt continued to worsen cognitively throughout the day, Dr Myers at bedside to evaluate several times, discussing options with . The decision was made to transfer pt to a higher level of care for Neuro testing and evaluation. Dr Myers has contacted and currently are waiting for a bed. Bed low and locked, call light within reach, no further needs at this time.
[2023-08-04 17:58] LABS: HEMOLYSIS < 15 (0-50); Potassium 3.3 mmol/L (3.4-5.1)
== END 2023-08-04 21:44 | disposition short-term general hospital (02) | DRG 97 ==
LOC: ED 13:06 → AC 16:04 → ICU 17:10
PROVIDERS: Admitting Provider Hospitalist; Emergency Provider Emergency Medicine; PCP Family Medicine; Referring Provider Emergency Medicine; Visit Provider Hospitalist
DX: B00.4 Herpesviral encephalitis (principal); G93.41 Metabolic encephalopathy; I33.0 Acute and subacute infective endocarditis; I48.92 Unspecified atrial flutter; R47.01 Aphasia; E87.6 Hypokalemia; G89.29 Other chronic pain; M54.9 Dorsalgia, unspecified; I48.91 Unspecified atrial fibrillation; G31.84 Mild cognitive impairment of uncertain or unknown etiology; Z87.440 Personal history of urinary (tract) infections
CPT/HCPCS: 36415; 36600; 70450; 70496; 70498; 70551; 71045; 80048; 80053; 81001; 81003; 82805; 83605; 83690; 83735; 83880; 84132; 84145; 84484; 85025; 85610; 85730; 87040; 87633; 87797; 93005; 93306; 96365; 96366; 97163; 99284; J1644; Q9967